=== PATIENT | male | born 1975 | race Caucasian/White ===

== ENCOUNTER 2022-09-16 16:47 | Emergency (ER) | payer BC ==
[~2022-09-16] VITALS: Ht 167.6 cm; Wt 65.8 kg
[2022-09-16] MEDS ORDERED: IV NS 1000 ML 1,000 ML IV ONE (17:00)
[2022-09-16 17:21] LABS: HEMATOCRIT 47.8 % (36.7-47.1); MEAN CORPUSCULAR HEMOGLOBIN 32.7 uug (23.8-33.4); MEAN CORPUSCULAR VOLUME 96.4 fL (73.0-96.2); PLATELET COUNT (AUTO) 292 K/uL (152-348)
[2022-09-16 17:24] LABS: CREATININE 1.1 mg/dL (0.6-1.3); GLUCOSE 181 mg/dL (74-106)
[2022-09-16 17:33] LABS: CARBON DIOXIDE 28 mmol/L (21-32); CHLORIDE 102 mmol/L (98-107); POTASSIUM 3.9 mmol/L (3.5-5.1); UREA NITROGEN, BLOOD 15 mg/dL (7-18)
[2022-09-16 18:06] LABS: *BILIRUBIN,URIN NEGATIVE (NEGATIVE); *BLOOD, URINE NEGATIVE (NEGATIVE); *CLARITY,URINE CLEAR (CLEAR); *COLOR,URINE YELLOW (YELLOW); *KETONES,URINE NEGATIVE (NEGATIVE); *UROBILINOGEN,URINE 0.2 E.U./dl (NORMAL); LEUKOCYTE ESTERASE ,URINE NEGATIVE (NEGATIVE); NITRITE, URINE NEGATIVE (NEGATIVE); UGLUCOSE NEGATIVE (NEGATIVE)
[2022-09-16 18:07] LABS: BACTERIA,URINE NONE SEEN /HPF (NONE SEEN); RBC,URINE 0-3 /HPF (0-3); SQUAMOUS EPITHELIAL CELL,UR FEW /HPF (NONE SEEN); WBC,URINE 0-3 /HPF (0-3)
[2022-09-16] MEDS ORDERED: MAGNESIUM SULFATE/D5W 200 ML ONE (20:35)
[2022-09-16] MEDS ORDERED: MAGNESIUM SULFATE/D5W 100 ML IV SCH (20:45)
[2022-09-16] MEDS ORDERED: BLOO-1731 MC (20:52)
[2022-09-16 21:46] VITALS: BP 134/72
== END 2022-09-16 21:59 | disposition home or self-care (01) ==
LOC: ER 16:50
DX: R55 Syncope and collapse (principal); E11.9 Type 2 diabetes mellitus without complications; D72.829 Elevated white blood cell count, unspecified; Z20.822 Contact with and (suspected) exposure to COVID-19
CPT/HCPCS: 99285; 96365; 71045; 87426; 80048; 81001; 83735; 85025; 84484; 36415; 93005; J3475; A4663